=== PATIENT | male | born 1965 | race Caucasian/White ===

== ENCOUNTER 2021-08-09 23:22 | Emergency (ER) | payer OTHER ==
[2021-08-09 23:31] VITALS: BP 152/97; PULSE 97; TEMP 98.7; BMI 32.5
== END 2021-08-09 23:43 | disposition home or self-care (01) ==
LOC: FER 23:22
DX: S61.210A Laceration without foreign body of right index finger without damage to nail, initial encounter (principal); W25.XXXA Contact with sharp glass, initial encounter
CPT/HCPCS: 99281-25